=== PATIENT | female | born 1955 | race African-American/Black ===

== ENCOUNTER 2021-03-12 19:11 | Inpatient (IN) | payer MEDICARE, OTHER ==
[~2021-03-12] VITALS: Ht 165.1 cm; Wt 67.6 kg
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
[2021-03-13] MEDS ORDERED: POLY17PO4 PO (03:32)
[2021-03-13] MEDS ORDERED: RISP2TAB85 PO (03:33)
[2021-03-13] MEDS ORDERED: THIA100V2 IM (03:35)
[2021-03-13] MEDS ORDERED: FOLI1CAP7 PO (03:36)
[2021-03-13] MEDS ORDERED: MELA5TAB PO (03:38)
[2021-03-13] MEDS ORDERED: DOCU100C36 PO (03:40)
[2021-03-13] MEDS ORDERED: MAG HYDROX/AL HYDROX/SIMETH 30 ML UDC PO PRN (04:00)
[2021-03-13] MEDS ORDERED: MAGNESIUM HYDROXIDE 30 ML UDC PO PRN (04:00)
[2021-03-13] MEDS ORDERED: ACETAMINOPHEN 325 MG TABLET PO PRN (04:00)
[2021-03-13] MEDS ORDERED: BLOOD SUGAR DIAGNOSTIC 1 EACH STRIP IN ONE (04:00)
[2021-03-13 04:02] VITALS: BP 160/88
[2021-03-13 05:00] VITALS: BP 143/75
[2021-03-13] MEDS ORDERED: POLYETHYLENE GLYCOL 3350 17 GM POWD.PACK PO PRN (06:30)
--- NOTE | 2021-03-13 06:33 | NUR ---
NURSES NOTES: UNABLE TO NOTIFY BRIDGER NITA NOT DONE. UNABLE TO LEAVE A VOICEMAIL ON THE [facility] AREA CODE NUMBER.
--- NOTE | 2021-03-13 06:43 | NUR ---
NURSES NOTES: COMPLAINED OF LEFT KNEE PAIN, REQUESTED FOR MEDICATION- TYLENOL 650 MG GIVEN ORALLY A PRN MEDICATION. WILL MONITOR PATIENT'S PAIN LEVEL AND EFFICACY OF MEDICATION.
[2021-03-13 08:00] VITALS: BP 143/84
[2021-03-13] MEDS: LORAZEPAM 1 MG TABLET PO PRN (08:28)
[2021-03-13] MEDS: DOCUSATE SODIUM 100 MG CAPSULE PO SCH ×2 (08:29→16:39)
[2021-03-13] MEDS: VITAMIN B COMP W-C 1 TAB TABLET PO SCH (08:29)
--- NOTE | 2021-03-13 08:30 | NUR ---
RN-NOTES NOTED PATIENT PACING IN AND OUT THE HALLWAY TALKING,LAUGHING AND SINGING TO SELF LOUD. ATIVAN 1MG P.O GIVEN PRN ORDER. WILL CONT. MONITORING FOR SAFETY AND BEHAVIOR.
[2021-03-13] MEDS ORDERED: Thiamine 100 MG/ML VIAL IM SCH (09:00)
--- NOTE | 2021-03-13 09:30 | NUR ---
RN-NOTES PATIENT IN THE DAY ROOM WATCHING TV, CALM NO ACUTE DISTRESS NOTED.
[2021-03-13] MEDS: THIAMINE HCL 100 MG TABLET PO SCH (09:44)
[2021-03-13 11:39] LABS: CHOLESTEROL 158 mg/dL (<200); HDL CHOLESTEROL 69 mg/dL (40-60); LDL 62 mg/dL (0-99); TRIGLYCERIDES 104 mg/dL (30-150)
[2021-03-13 16:00] VITALS: BP 141/76
[2021-03-13] MEDS: risperiDONE 1 MG TABLET PO SCH (16:39)
--- NOTE | 2021-03-13 19:35 | NUR ---
RN NOTES: RECEIVED PATIENT INSIDE THE ROOM, SITTING IN HER BED, AMBULATORY. PATIENT IS CALM. NO S/S OF DISTRESS NOTED.
[2021-03-13 23:40] VITALS: BP 152/76
--- NOTE | 2021-03-14 00:49 | NUR ---
PATIENT IS VERY AGITATED, KICKED THE PAPER BAG TRASH OUT OF THE ROOM, HOLDING HER HANDS TOGETHER THAT LOOKS LIKE SHE IS HOLDING A GUN, AND POINTING TO ANOTHER NURSE IN THE HALLWAY. WENT INSIDE TO ANOTHER PATIENT'S ROOM. DOES NOT WANT TO GO TO HER ROOM. PATIENT THREW A WATER BOTTLE TO SUNSHINE REARDON. PLACED PATIENT IN A CARMINE CHAIR WITH MENHADEN VESSEL PILOT WATCHING HER, STILL PATIENT IS VERY AGITATED, BANGING THE CHAIR.
--- NOTE | 2021-03-14 01:00 | NUR ---
CHARGE NURSE ALEXYS CALLED DR ONEILL WITH ORDER MADE.
--- NOTE | 2021-03-14 01:17 | NUR ---
GPS RN NOTE, PATIENT IS CONFUSED, INCOHERENT, DELUSIONAL, AGITATED, POSTURING, AND THROWING OBJECTS AT STAFF. LESS RESTRICTIVE MEASURES ATTEMPTED IE OFFERING PO MEDICATION, 1 TO 1 INTERACTION, AND REORIENTATION WAS TRIED WITH NO POSITIVE EFFECT. PAGED DR ONEILL AND INFORMED HIM OF MY FINDINGS. DR ONEILL ORDERED ZYPREXA 10MG IM ONCE. PATIENT ASSISTED TO ROOM AND GIVEN AFOREMENTIONED MEDICATION IN HER RIGHT VENTROGLUTEAL WITH THE HELP OF STAFF AND SECURITY. PATIENT TOLERATE PROCEDURE WELL. ALL ORDERS NOTED AND CARRIED OUT. WILL CONTINUE TO MONITOR THE PATIENT.
[2021-03-14] MEDS ORDERED: OLANZAPINE 10 MG VIAL IM ONE (01:30)
--- NOTE | 2021-03-14 02:04 | NUR ---
OFFERED PRN ATIVAN PO, PATIENT REFUSED. ZYPREXA 10 MG IM GIVEN AT 0137. V/S WILL BE MONITORED [id number] FOR AN HOUR. PATIENT MONITORED CLOSELY. PATIENT IS SITTING IN THE CARMINE CHAIR.
--- NOTE | 2021-03-14 05:00 | NUR ---
charge nurse,Jas asked the patient if she wants to go back to the bed, patient replied yes. Brought her back to bed, patient lay down, after 30mins or so, patient started pouring the water to the floor inside the room and in the hallway, patient placed back to the charlene chair with closely monitored.
[2021-03-14 06:33] LABS: BASOPHILS # (AUTO) 0.1 /CMM (0.0-0.2); EOSINOPHILS % (AUTO) 2.8 % (0.0-6.0); HEMATOCRIT 33 % (33-45); HEMOGLOBIN 10.8 g/dL (11.5-14.8); MEAN CORPUSCULAR HGB CONC 33 g/dl (31.0-36.0); MEAN CORPUSCULAR VOLUME 93 fL (82-100); MONOCYTES # (AUTO) 0.7 /CMM (0.1-1.30); MONOCYTES % (AUTO) 10.3 % (2.0-12.0); NEUTROPHILS # (AUTO) 3.6 /CMM (1.8-8.9); NEUTROPHILS % (AUTO) 54.9 % (43.0-81.0); PLATELET COUNT (AUTO) 428 /CMM (150-450); RED BLOOD CELL COUNT(AUTO) 3.56 MIL/uL (4.0-5.2); WHITE BLOOD COUNT (AUTO) 6.6 K/uL (4.3-11.0)
[2021-03-14 06:51] LABS: BILIRUBIN,TOTAL 0.3 mg/dL (0.2-1.0); CALCIUM, SERUM 9.9 mg/dL (8.5-10.1); CREATININE 0.7 mg/dL (0.6-1.3); MAGNESIUM 1.7 mg/dL (1.8-2.4); PHOSPHORUS 3.6 mg/dL (2.5-4.9); POTASSIUM 3.8 mmol/L (3.5-5.1); TOTAL PROTEIN, SERUM 7.4 g/dL (6.4-8.2)
[2021-03-14 06:52] LABS: THYROID STIMULATING HORMONE 0.676 uIU/mL (0.358-3.74)
[2021-03-14 07:52] LABS: CHOLESTEROL 181 mg/dL (<200); HDL CHOLESTEROL 84 mg/dL (40-60); LDL 67 mg/dL (0-99); TRIGLYCERIDES 87 mg/dL (30-150)
[2021-03-14 08:00] VITALS: BP_SYST 132; BP_SYST 141; BP_DIAS 70; BP_DIAS 95
[2021-03-14] MEDS: VITAMIN B COMP W-C 1 TAB TABLET PO SCH (08:08)
[2021-03-14] MEDS: THIAMINE HCL 100 MG TABLET PO SCH (08:08)
[2021-03-14] MEDS: risperiDONE 1 MG TABLET PO SCH ×2 (08:08→16:23)
[2021-03-14] MEDS: DOCUSATE SODIUM 100 MG CAPSULE PO SCH ×2 (08:08→16:23)
[2021-03-14] MEDS ORDERED: MAGNESIUM OXIDE 400 MG TABLET PO ONE (10:00)
[2021-03-14] MEDS: LORAZEPAM 1 MG TABLET PO PRN ×2 (10:09→19:29)
--- NOTE | 2021-03-14 10:09 | NUR ---
RN-NOTES NOTED PATIENT PACING IN THE HALLWAY TALKING SINGING TO SELF LOUD. ATIVAN 1MG P.O GIVEN PRN ORDER. WILL CONT. MONITORING FOR SAFETY AND BEHAVIOR.
[2021-03-14 10:18] LABS: BILIRUBIN,URINE NEGATIVE (NEGATIVE); COLOR,URINE YELLOW (YELLOW); LEUKOCYTE ESTERASE ,URINE MODERATE (NEGATIVE); NITRITE, URINE NEGATIVE (NEGATIVE); PROTEIN,URINE TRACE mg/dl (NEGATIVE); UGLUCOSE NEGATIVE (NEGATIVE); UROBILINOGEN,URINE 0.2 EU/dL (0.2)
[2021-03-14 10:49] LABS: BACTERIA,URINE Few /HPF (None Seen); CALCIUM OXALATE CRYSTALS,UR Few /HPF (None Seen); RBC,URINE 0-2 /HPF (0-2); SQUAMOUS EPITHELIAL CELL,UR Many /HPF (None Seen)
--- NOTE | 2021-03-14 14:36 | NUR ---
Initial Discharge Plan: Pt currently resides at her apartment located at [address] [place] [address]. Per pt, she would like to return to her apartment. ADALBERTO will work with the pt and the MD regarding appropriate discharge planning. SW will form a safe and proper discharge plan.
[2021-03-14 16:00] VITALS: BP 133/73
--- NOTE | 2021-03-14 16:28 | NUR ---
Family Contact: SW contacted the pts sister, Carmenza ([phone]), and left a message stating that the SW wanted to speak to her.
--- NOTE | 2021-03-14 19:31 | NUR ---
GPS RN NOTE: ANXIETY PATIENT VERBALIZED THAT SHE IS FEELING ANXIOUS & RESTLESS. PRN ATIVAN 1 MG PO ADMINISTERED. WILL CONTINUE TO MONITOR.
[2021-03-14 20:28] VITALS: BP 145/70
[2021-03-15] MEDS: ZOLPIDEM TARTRATE 5 MG TABLET PO PRN (00:38)
--- NOTE | 2021-03-15 00:40 | NUR ---
RN NOTE: INSOMNIA PATIENT IS UNABLE TO SLEEP, EASILY AGITATED & RESTLESS. PRN AMBIEN 5 MG PO GIVEN. WILL CONTINUE TO MONITOR.
[2021-03-15] MEDS: LORAZEPAM 1 MG TABLET PO PRN ×2 (05:52→20:24)
--- NOTE | 2021-03-15 05:54 | NUR ---
RN NOTE: ANXIETY PATIENT NOTED TO BE RESTLESS, ANXIOUS, LABILE, USING INAPPROPRIATE LANGUAGE TO WARDS STAFF, AGITATED, PRN ATIVAN 1 MG PO ADMINISTERED. WILL CONTINUE TO MONITOR.
[2021-03-15 08:00] VITALS: BP 160/84
[2021-03-15] MEDS: risperiDONE 1 MG TABLET PO SCH ×2 (09:19→17:12)
[2021-03-15] MEDS: DOCUSATE SODIUM 100 MG CAPSULE PO SCH ×2 (09:19→17:12)
[2021-03-15] MEDS: VITAMIN B COMP W-C 1 TAB TABLET PO SCH (09:19)
[2021-03-15] MEDS: THIAMINE HCL 100 MG TABLET PO SCH (09:19)
--- NOTE | 2021-03-15 15:50 | NUR ---
STATES ANXIOUS TO LEAVE,WALKING ABOUT UNIT FROM TIME TO TIME.
[2021-03-15 16:00] VITALS: BP 158/77
--- NOTE | 2021-03-15 20:26 | NUR ---
RN NOTE: ANXIETY PATIENT NOTED TO BE RESTLESS, ANXIOUS, LABILE, AGITATED, PRN ATIVAN 1 MG PO ADMINISTERED. WILL CONTINUE TO MONITOR.
[2021-03-15 20:53] VITALS: BP 119/56
[2021-03-15 20:59] VITALS: BP 119/56
[2021-03-16] MEDS: ZOLPIDEM TARTRATE 5 MG TABLET PO PRN (01:54)
--- NOTE | 2021-03-16 01:55 | NUR ---
RN NOTE: INSOMNIA PATIENT IS AWAKE, VERBALIZED THAT SHE IS UNABLE TO SLEEP & WANTED TO TAKE SLEEPING MEDICINE. PRN AMBIEN 5 MG PO ADMINISTERED. WILL CONTINUE TO MONITOR.
[2021-03-16] MEDS: LORAZEPAM 1 MG TABLET PO PRN ×2 (05:06→11:49)
--- NOTE | 2021-03-16 05:07 | NUR ---
RN NOTE: ANXIETY PATIENT NOTED TO BE RESTLESS, ANXIOUS, LABILE, AGITATED, AGGRESSIVE, PARANOID, PRN ATIVAN 1 MG PO ADMINISTERED. WILL CONTINUE TO MONITOR.
[2021-03-16 06:43] LABS: BASOPHILS # (AUTO) 0.1 /CMM (0.0-0.2); BASOPHILS % (AUTO) 1.6 % (0.0-2.0); EOSINOPHILS % (AUTO) 6.7 % (0.0-6.0); HEMATOCRIT 31 % (33-45); HEMOGLOBIN 10.4 g/dL (11.5-14.8); LYMPHOCYTES # (AUTO) 1.9 /CMM (0.8-4.8); LYMPHOCYTES % (AUTO) 28.4 % (20.0-44.0); MEAN CORPUSCULAR HGB CONC 33 g/dl (31.0-36.0); MEAN CORPUSCULAR VOLUME 92 fL (82-100); MONOCYTES # (AUTO) 0.7 /CMM (0.1-1.30); NEUTROPHILS # (AUTO) 3.6 /CMM (1.8-8.9); NEUTROPHILS % (AUTO) 53.3 % (43.0-81.0); PLATELET COUNT (AUTO) 402 /CMM (150-450); RED BLOOD CELL COUNT(AUTO) 3.36 MIL/uL (4.0-5.2); WHITE BLOOD COUNT (AUTO) 6.7 K/uL (4.3-11.0)
[2021-03-16 06:55] LABS: ALBUMIN 2.8 g/dL (3.4-5.0); BILIRUBIN,TOTAL 0.3 mg/dL (0.2-1.0); CALCIUM, SERUM 9.3 mg/dL (8.5-10.1); CREATININE 0.8 mg/dL (0.6-1.3); POTASSIUM 3.8 mmol/L (3.5-5.1); TOTAL PROTEIN, SERUM 6.9 g/dL (6.4-8.2)
[2021-03-16 08:00] VITALS: BP 155/83
[2021-03-16] MEDS: risperiDONE 1 MG TABLET PO SCH ×2 (08:03→16:19)
[2021-03-16] MEDS: VITAMIN B COMP W-C 1 TAB TABLET PO SCH (08:03)
[2021-03-16] MEDS: DOCUSATE SODIUM 100 MG CAPSULE PO SCH ×2 (08:03→16:19)
[2021-03-16] MEDS: THIAMINE HCL 100 MG TABLET PO SCH (08:03)
--- NOTE | 2021-03-16 11:49 | NUR ---
RN-CO: ATIVAN 1 MG PO GIVEN FOR AGITATION TO STAFF.
[2021-03-16] MEDS: AMLODIPINE BESYLATE 5 MG TABLET PO SCH (15:02)
[2021-03-16 16:00] VITALS: BP 161/77
--- NOTE | 2021-03-16 20:29 | NUR ---
NADYA RN NOTES PATIENT COOPERATIVE. PATIENT PROVIDED URINE SPECIMEN. CALLED LAB FOR SUCTION PLATE CARRIER CLEANER.
[2021-03-16 21:44] VITALS: BP 132/56
[2021-03-17] MEDS: ZOLPIDEM TARTRATE 5 MG TABLET PO PRN ×2 (01:03→22:04)
--- NOTE | 2021-03-17 01:03 | NUR ---
GPS RN NOTES PATIENT BECOMING RESTLESS. TAKING OUT THE RESTROOM DOORS. OFFERED IF SHE WANTS SOME SLEEPING MEDICATION AND SHE SAID SHE WANTS IT. WILL REASSESS.
--- NOTE | 2021-03-17 06:39 | NUR ---
GPS RN CLOSING NOTES PATIENT IN ROOM. AMBULATING AROUND. NO S/S OF DISTRESS. NO C/O PAIN.ALL SCHED MEDS GIVEN. SAFETY KEPT IN PLACE: BED IN LOWEST, LOCKED POSITION; BED ALARM IN PLACE. ALL NEEDS ATTENDED. WILL ENDORSE CARE TO MORNING SHIFT NURSE.
[2021-03-17 08:00] VITALS: BP 164/64
[2021-03-17] MEDS: risperiDONE 1 MG TABLET PO SCH ×2 (09:16→17:12)
[2021-03-17] MEDS: VITAMIN B COMP W-C 1 TAB TABLET PO SCH (09:16)
[2021-03-17] MEDS: THIAMINE HCL 100 MG TABLET PO SCH (09:16)
[2021-03-17] MEDS: DOCUSATE SODIUM 100 MG CAPSULE PO SCH ×2 (09:16→17:12)
[2021-03-17] MEDS: AMLODIPINE BESYLATE 5 MG TABLET PO SCH (09:17)
[2021-03-17] MEDS: LORAZEPAM 1 MG TABLET PO PRN (10:45)
--- NOTE | 2021-03-17 10:45 | NUR ---
RN NOTES ADMINISTERED ATIVAN 1 MG PO PRN FOR ANXIETY. PATIENT DELUSIONAL, TALKING SELF. BP- 158/68, P-90. WILL MONITORING.
[2021-03-17 16:00] VITALS: BP 124/54
[2021-03-17 19:33] VITALS: BP 128/51
--- NOTE | 2021-03-17 22:06 | NUR ---
GPS RN NOTES: PATIENT REQUESTED SLEEP FOR MEDICATION. AMBIEN 5MG/1TAB GIVEN PO PRN ORDERED AT 2204. WILL CONTINUE TO MONITOR.
--- NOTE | 2021-03-17 23:00 | NUR ---
GPS RN NOTES: PATIENT WAS AGITATED, RESTLESS, ANXIOUS, WANDERING INTO OTHER PATIENTS ROOMS, COMBATIVE, REFUSING REDIRECTION. SECURITY CALLED AND ZYPREXA 5MG/IM ADMINISTERED PER DR ONEILL'S ORDER. WILL CONTINUE TO MONITOR. Addendum: 03/17/21 at 0435 by SHAN RICHMOND RN ROSCOE DISREGARD, NOTE IS MEANT FOR ANOTHER PATIENT.
[2021-03-18] MEDS: LORAZEPAM 1 MG TABLET PO PRN ×3 (05:45→22:33)
--- NOTE | 2021-03-18 05:47 | NUR ---
GPS RN NOTES: PATIENT REQUESTED ATIVAN FOE ANXIETY. ATIVAN 1MG/1TAB GIVEN PO PRN ORDERED AT 0545. WILL CONTINUE TO MONITOR.
[2021-03-18 08:00] VITALS: BP 151/82
[2021-03-18] MEDS: VITAMIN B COMP W-C 1 TAB TABLET PO SCH (08:27)
[2021-03-18] MEDS: DOCUSATE SODIUM 100 MG CAPSULE PO SCH ×2 (08:27→16:34)
[2021-03-18] MEDS: THIAMINE HCL 100 MG TABLET PO SCH (08:27)
[2021-03-18] MEDS: AMLODIPINE BESYLATE 5 MG TABLET PO SCH (08:28)
[2021-03-18] MEDS: risperiDONE 1 MG TABLET PO SCH ×2 (08:28→16:34)
--- NOTE | 2021-03-18 10:15 | NUR ---
Probable Cause Hearing: Pts [id number] hold was upheld for grave disability.
[2021-03-18 16:00] VITALS: BP 135/61
--- NOTE | 2021-03-18 16:37 | NUR ---
RN NOTE: AGITATION PT AGITATED. THROWING DRINK ONTO THE FLOOR. MEDICATED WITH ATIVAN 1MG PO PRN.
[2021-03-18 20:27] VITALS: BP 142/65
[2021-03-18] MEDS: ZOLPIDEM TARTRATE 5 MG TABLET PO PRN (21:55)
--- NOTE | 2021-03-18 21:59 | NUR ---
GPS RN NOTES: PATIENT REQUESTED FOR SLEEP MEDICATION. AMBIEN 5MG/1TAB GIVEN PO AT 2155. WILL CONTINUE TO MONITOR.
--- NOTE | 2021-03-18 22:35 | NUR ---
GPS RN NOTES PATIENT IS RESTLESS, ANXIOUS, PACING IN HALLWAY, REQUESTED FOR ATIVAN. ATIVAN 1MG 1TAB GIVEN PO PRN ORDERED AT 3. WILL CONTINUE TO MONITOR.
--- NOTE | 2021-03-19 06:48 | NUR ---
GPS RN CLOSING NOTES: PATIENT IS AMBULATING IN HALLWAY. PATIENT SLEPT 7HRS THIS SHIFT. PATIENT WAS MED COMPLIANT THIS SHIFT. NO S/S OF DISTRESS. RESPIRATION EVEN AND UNLABORED WITH EQUAL RISE AND FALL OF THE CHEST ON ROOM AIR. ALL PATIENT CARE NEEDS HAVE BEEN MET ANTICIPATED. WILL CONTINUE TO MONITOR FOR SAFETY, MOOD AND BEHAVIOR AND ENDORSE TO AM SHIFT
[2021-03-19 08:00] VITALS: BP 144/67
[2021-03-19] MEDS: risperiDONE 1 MG TABLET PO SCH ×2 (08:22→16:49)
[2021-03-19] MEDS: VITAMIN B COMP W-C 1 TAB TABLET PO SCH (08:22)
[2021-03-19] MEDS: LORAZEPAM 1 MG TABLET PO PRN ×2 (08:22→15:39)
[2021-03-19] MEDS: AMLODIPINE BESYLATE 5 MG TABLET PO SCH (08:23)
[2021-03-19] MEDS: THIAMINE HCL 100 MG TABLET PO SCH (08:23)
[2021-03-19] MEDS: DOCUSATE SODIUM 100 MG CAPSULE PO SCH ×2 (08:23→16:48)
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
[2021-03-19] MEDS: CEPHALEXIN MONOHYDRATE 500 MG CAPSULE PO SCH ×2 (09:24→16:48)
[2021-03-19] MEDS: DIVALPROEX SODIUM 250 MG TABLET.DR PO SCH ×2 (12:05→20:29)
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
[2021-03-19 16:00] VITALS: BP 136/64
[2021-03-19 20:00] VITALS: BP 134/76
[2021-03-19] MEDS: ZOLPIDEM TARTRATE 5 MG TABLET PO PRN (20:30)
[2021-03-20] MEDS: LORAZEPAM 1 MG TABLET PO PRN (07:55)
--- NOTE | 2021-03-20 07:59 | NUR ---
RN-NOTES NOTED PATIENT PACING IN THE HALLWAY TALKING SINGING TO SELF LOUD. ATIVAN 1MG P.O GIVEN PRN ORDER. WILL CONT. MONITORING FOR SAFETY AND BEHAVIOR.
[2021-03-20 08:00] VITALS: BP 165/87
[2021-03-20] MEDS: CEPHALEXIN MONOHYDRATE 500 MG CAPSULE PO SCH ×2 (08:15→16:01)
[2021-03-20] MEDS: DOCUSATE SODIUM 100 MG CAPSULE PO SCH ×2 (08:15→16:01)
[2021-03-20] MEDS: VITAMIN B COMP W-C 1 TAB TABLET PO SCH (08:15)
[2021-03-20] MEDS: THIAMINE HCL 100 MG TABLET PO SCH (08:15)
[2021-03-20] MEDS: risperiDONE 1 MG TABLET PO SCH ×2 (08:15→16:01)
[2021-03-20] MEDS: DIVALPROEX SODIUM 250 MG TABLET.DR PO SCH ×2 (08:15→20:53)
[2021-03-20] MEDS: AMLODIPINE BESYLATE 5 MG TABLET PO SCH (08:16)
--- NOTE | 2021-03-20 09:00 | NUR ---
RN-NOTES PATIENT WATCHING TV IN THE DAY ROOM CALM,NO ACUTE DISTRESS NOTED.
--- NOTE | 2021-03-20 11:54 | NUR ---
Family Contact: SW contacted the pts sister, Carmenza ([phone]), and left a message stating that the SW wanted to speak to her.
[2021-03-20 16:00] VITALS: BP 144/74
[2021-03-20 20:18] VITALS: BP 152/73
[2021-03-20 20:24] VITALS: BP 152/93
[2021-03-20 21:40] VITALS: BP 141/86
[2021-03-20] MEDS: ZOLPIDEM TARTRATE 5 MG TABLET PO PRN (21:53)
[2021-03-21] MEDS: LORAZEPAM 1 MG TABLET PO PRN ×2 (05:09→17:33)
--- NOTE | 2021-03-21 05:10 | NUR ---
RN NOTE: ANXIETY NOTED PATIENT PACING IN THE HALLWAY, ANXIOUS, RESTLESS, SINGING TO SELF LOUD. DANCING IN HER ROOM, ATIVAN 1MG P.O GIVEN PRN ORDER. WILL CONT. MONITORING FOR SAFETY AND BEHAVIOR.
[2021-03-21 08:00] VITALS: BP_SYST 131; BP_SYST 92; BP_DIAS 54; BP_DIAS 65
[2021-03-21] MEDS: CEPHALEXIN MONOHYDRATE 500 MG CAPSULE PO SCH (08:12)
[2021-03-21] MEDS: DIVALPROEX SODIUM 250 MG TABLET.DR PO SCH ×3 (08:12→16:07)
[2021-03-21] MEDS: VITAMIN B COMP W-C 1 TAB TABLET PO SCH (08:12)
[2021-03-21] MEDS: risperiDONE 1 MG TABLET PO SCH ×2 (08:12→16:07)
[2021-03-21] MEDS: AMLODIPINE BESYLATE 5 MG TABLET PO SCH (08:13)
[2021-03-21] MEDS: DOCUSATE SODIUM 100 MG CAPSULE PO SCH ×2 (08:13→16:07)
[2021-03-21] MEDS: THIAMINE HCL 100 MG TABLET PO SCH (08:13)
--- NOTE | 2021-03-21 10:22 | NUR ---
Family Contact: SW contacted the pts sister, Carmenza ([phone]), and left a message stating that the SW wanted to speak to her.
--- NOTE | 2021-03-21 12:10 | NUR ---
Apartment Contact: SW called [facility] and left a voicemail for the apartment staff to get a call back to confirm the pts placement.
--- NOTE | 2021-03-21 12:17 | NUR ---
Apartment Contact: SW called [facility] and spoke to Olga who stated that the pt is in the process of being evicted and she has a restraining order against the pt as well. She stated that the pt can return there on Wednesday but she will have to start looking for another place to return to.
[2021-03-21 16:00] VITALS: BP 143/61
--- NOTE | 2021-03-21 17:35 | NUR ---
RN-NOTES NOTED PATIENT PACING IN AND OUT HER ROOM ,AGITATED YELLING AT THE FOOT CUTTER DELUSIONAL. STATED" I'M HOWARD OBAMA AND I CAN DO ANYTHING I WANT". REDIRECTED AND ATIVAN 1MG P.O GIVEN PRN ORDER. WILL CONT. MONITORING FOR SAFETY AND BEHAVIOR.
--- NOTE | 2021-03-21 18:39 | NUR ---
RN-NOTES PATIENT LYING IN BED CALM, NO ACUTE DISTRESS NOTED.
[2021-03-21 20:07] VITALS: BP 119/72
[2021-03-21 20:10] VITALS: BP 119/72
[2021-03-21] MEDS: ZOLPIDEM TARTRATE 5 MG TABLET PO PRN (23:29)
[2021-03-22] MEDS: LORAZEPAM 1 MG TABLET PO PRN ×3 (06:09→20:13)
--- NOTE | 2021-03-22 06:11 | NUR ---
RN NOTE: ANXIETY NOTED PATIENT PACING IN THE HALLWAY, IN & OUT OF HER ROOM, ANXIOUS, RESTLESS, USING BAD WORDS, TALKING TO HERSELF, ATIVAN 1MG P.O GIVEN PRN ORDER. WILL CONT. MONITORING FOR SAFETY AND BEHAVIOR.
[2021-03-22 08:00] VITALS: BP 143/97
[2021-03-22] MEDS: risperiDONE 1 MG TABLET PO SCH ×2 (09:17→18:04)
[2021-03-22] MEDS: DOCUSATE SODIUM 100 MG CAPSULE PO SCH ×2 (09:17→18:04)
[2021-03-22] MEDS: THIAMINE HCL 100 MG TABLET PO SCH (09:18)
[2021-03-22] MEDS: DIVALPROEX SODIUM 250 MG TABLET.DR PO SCH ×3 (09:18→18:04)
[2021-03-22] MEDS: VITAMIN B COMP W-C 1 TAB TABLET PO SCH (09:18)
[2021-03-22] MEDS: AMLODIPINE BESYLATE 5 MG TABLET PO SCH (09:18)
--- NOTE | 2021-03-22 11:21 | NUR ---
GIVEN ATIVAN 1 MG PO FOR AGITATION.WALKING IN HALLS TALKING TO SELF.
[2021-03-22 16:00] VITALS: BP 154/74
[2021-03-22 20:10] VITALS: BP 136/71
--- NOTE | 2021-03-22 20:15 | NUR ---
RN NOTE: ANXIETY NOTED PATIENT PACING IN THE HALLWAY, ANXIOUS, RESTLESS, USING BAD WORDS, HYPERVERBAL, TALKING TO HERSELF, DELUSIONAL, ATIVAN 1MG P.O GIVEN PRN ORDER. WILL CONTINUE MONITORING FOR SAFETY AND BEHAVIOR.
[2021-03-22 20:16] VITALS: BP 136/71
[2021-03-22] MEDS: ZOLPIDEM TARTRATE 5 MG TABLET PO PRN (22:03)
[2021-03-23] MEDS: LORAZEPAM 1 MG TABLET PO PRN ×3 (05:40→17:33)
--- NOTE | 2021-03-23 05:43 | NUR ---
RN NOTE: ANXIETY NOTED PATIENT PACING IN THE HALLWAY, IN & OUT OF HER ROOM, ANXIOUS, RESTLESS, USING BAD WORDS, TALKING TO HERSELF, SINGING LOUD, DANCING, HYPERVERBAL, BLAMING HER ROOMMATE OF STEALING HER STUFF EVEN HER ROOMMATE IS ASLEEP AT THIS TIME, DELUSIONAL, PARANOID, ATIVAN 1MG P.O GIVEN PRN ORDER. WILL CONT. MONITORING FOR SAFETY AND BEHAVIOR.
[2021-03-23 08:00] VITALS: BP 151/78
[2021-03-23] MEDS: risperiDONE 1 MG TABLET PO SCH ×2 (08:21→17:33)
[2021-03-23] MEDS: THIAMINE HCL 100 MG TABLET PO SCH (08:21)
[2021-03-23] MEDS: VITAMIN B COMP W-C 1 TAB TABLET PO SCH (08:21)
[2021-03-23] MEDS: DIVALPROEX SODIUM 250 MG TABLET.DR PO SCH ×3 (08:21→17:33)
[2021-03-23] MEDS: AMLODIPINE BESYLATE 5 MG TABLET PO SCH (08:22)
[2021-03-23] MEDS: DOCUSATE SODIUM 100 MG CAPSULE PO SCH ×2 (08:22→17:33)
[2021-03-23 16:00] VITALS: BP 130/63
[2021-03-23 20:00] VITALS: BP 124/58
[2021-03-24] MEDS: ZOLPIDEM TARTRATE 5 MG TABLET PO PRN (01:20)
--- NOTE | 2021-03-24 01:23 | NUR ---
Pt c/o insomnia. Least restrictive measures ineffective. Ambien 5 mg 1 tab po prn given as ordered. Will continue to monitor.
--- NOTE | 2021-03-24 02:25 | NUR ---
Soumya effective. Post 1 hr asleep in bed easy to arouse. Will continue to monitor. Frequent visual check done for safety
[2021-03-24] MEDS: LORAZEPAM 1 MG TABLET PO PRN (06:00)
--- NOTE | 2021-03-24 06:01 | NUR ---
Pt c/o anxiety. Least restrictive measures ineffective. Ativan 1 mg po prn given as ordered. Will continue to monitor.
--- NOTE | 2021-03-24 06:59 | NUR ---
Post 1 hr Ativan effective. Pt in room calm. Will continue to monitor. Will endorse to next shift.
[2021-03-24 08:00] VITALS: BP 100/59
[2021-03-24] MEDS: DOCUSATE SODIUM 100 MG CAPSULE PO SCH (08:00)
[2021-03-24] MEDS: risperiDONE 1 MG TABLET PO SCH (08:00)
[2021-03-24] MEDS: AMLODIPINE BESYLATE 5 MG TABLET PO SCH (08:00)
[2021-03-24] MEDS: THIAMINE HCL 100 MG TABLET PO SCH (08:00)
[2021-03-24] MEDS: DIVALPROEX SODIUM 250 MG TABLET.DR PO SCH ×2 (08:00→12:50)
[2021-03-24] MEDS: VITAMIN B COMP W-C 1 TAB TABLET PO SCH (08:00)
--- NOTE | 2021-03-24 13:25 | NUR ---
BRANCH OFFICER NOTE: 65 YEAR OLD FEMALE DISCHARGED TO HOME WITH SON IN STABLE CONDITION. COMPLIANT WITH MEDICATIONS, COOPERATIVE WITH TREATMENT PLANS. PATIENT DENIES SI/HI AND INSTRUCTED TO GO TO THE CLOSEST ER IF DEVELOPING SI/HI. BEHAVIOR IMPROVED, PSYCHIATRIC TREATMENT PLANS MET, MEDICAL TREATMENT PLANS DEFERRED FOR CONTINUAL MONITORING. EDUCATED PT ABOUT AFTER CARE PLAN AND COPY PROVIDED. RETURNED PERSONAL BELONGINGS TO PATIENT. MEDICATIONS RECONCILED WITH DR. ONEILL AND DR. SOTO. PATIENT SIGNED DISCHARGE PAPERWORK. WOUND PICTURES TAKEN AND DOCUMENTED IN CHART. PT LEFT THE UNIT AT 1325 VIA TAXI.
== END 2021-03-24 13:30 | disposition home or self-care (01) | DRG 885 ==
LOC: GPS 03-13 02:38
PROVIDERS: ADMIT Psychiatry & Neurology Psychiatry
DX: F29 Unspecified psychosis not due to a substance or known physiological condition (principal); F01.50 Vascular dementia, unspecified severity, without behavioral disturbance, psychotic disturbance, mood disturbance, and anxiety; E44.1 Mild protein-calorie malnutrition; N39.0 Urinary tract infection, site not specified; I10 Essential (primary) hypertension; E83.42 Hypomagnesemia; K59.00 Constipation, unspecified; Z73.6 Limitation of activities due to disability; E88.09 Other disorders of plasma-protein metabolism, not elsewhere classified; Z68.24 Body mass index [BMI] 24.0-24.9, adult; F25.9 Schizoaffective disorder, unspecified
CPT/HCPCS: 36415; 80053-TC; 80061-TC; 80164-TC; 81001; 82962-TC; 83735-TC; 84100-TC; 84443-TC; 85025-TC; 87081-TC; 87086-TC; 97116-TC; 97530-TC; J3411; J3490